=== PATIENT | male | born 1965 | race African-American/Black ===

== ENCOUNTER 2016-12-11 07:09 | Emergency (ER) | payer MEDICAID ==
[~2016-12-11] VITALS: Ht 175.3 cm; Wt 182.0 kg
[~2016-12-11 07:09] MED LIST: NO MEDS
[2016-12-11 07:12] VITALS: Ht 175.3 cm; Wt 182.0 kg
--- NOTE | 2016-12-11 07:45 | ERD ---
ER Documentation Chief Complaint Date/Time DATE: 12/11/16 TIME: 07:42 Chief Complaint pt bib self with c/o left ankle pain HPI This is a 51-year-old male who presents the emergency department today complaining of left ankle pain for the past couple of days. Patient states that he was trying to run he started having pain. Patient states that 2 years ago he had a plate and 7 screws placed for an ankle fracture. States he was sent here to the emergency department by his pain management doctor for an x- ray. States he takes Vicodin at home by his pain management doctor. States he also has a "medical marijuana card". Denies any fevers or chills. ROS All systems reviewed and are negative except as per history of present illness. Medications Home Meds Reported Medications [No Meds] No Conflict Check 02/19/11 Allergies Allergies: Coded Allergies: No Known Drug Allergies (Verified Allergy, Mild, 02/19/11) PMhx/Soc History of Surgery: No Anesthesia Reaction: No Hx Neurological Disorder: No Hx Respiratory Disorders: No Hx Cardiac Disorders: No Hx Psychiatric Problems: No Hx Miscellaneous Medical Probl: No Hx Alcohol Use: Yes Hx Substance Use: No Hx Tobacco Use: Yes Smoking Status: Current every day smoker Physical Exam Vitals Vital Signs Date Time Temp Pulse Resp B/P Pulse Ox O2 Delivery O2 Flow Rate FiO2 12/11/16 07:12 98.3 85 16 160/90 99 Physical Exam Const: No acute distress Head: Atraumatic Eyes: Normal Conjunctiva ENT: Normal External Ears, Nose and Mouth. Neck: Full range of motion..~ No meningismus. Resp: Clear to auscultation bilaterally Cardio: Regular rate and rhythm, no murmurs Skin: No petechiae or rashes. Left ankle evidence of surgical scar MSK left ankle with no obvious deformity. Mild effusion over lateral aspect of ankle. Evidence of surgical scar. Decreased range of motion secondary to pain. Pulses 2+. Distal neurovascularly intact.. Pulses 2+. Neur: Awake and alert Psych: Normal Mood and Affect Results 24 hrs DIAGNOSTIC IMAGING REPORT Patient: CINDY BATISTA : 1965 Age: 51 Sex: M MR #: [id number] DOS: 12/11/16 0000 Ordering MD: MAGEN FINNEGAN PA-C Location: [facility] Room/Bed: PROCEDURE: Left ankle series. CLINICAL INDICATION: Left ankle pain TECHNIQUE: Three views of the left ankle were performed. COMPARISON: None. FINDINGS: Patient is status post ORIF of distal fibular fracture. Hardware appears intact. There is no evidence of hardware loosening or hardware fracture. No acute fracture or dislocation is seen. There are moderate degenerative changes of the left ankle joint.. No joint effusion is identified. The soft tissues are within normal limits. Incidental note is made of a plantar heel spur. IMPRESSION: 1. Does post ORIF of distal left fibular fracture with intact hardware. 2. Moderate degenerative changes of the left ankle joint. RPTAT: AA .Shashi Jo MD, MD Date Time Electronically viewed and signed by .Shashi Jo MD, MD on 2016 08:27 .B/ CC: MAGEN FINNEGAN PA-C Procedures/MDM This is a 51-year-old male who presents to the emergency department today complaining of left ankle pain for the past couple of days. Patient has a history of surgical reconstruction with a plate and screws. Patient was sent here by his pain management doctor for imaging. Per the radiology report images of the left ankle show the patient is status post ORIF of distal fibular fracture. Hardware appears intact. There is no evidence of hardware loosening or hardware fracture. No acute fracture dislocation. There are moderate degenerative changes of the left ankle. There is no joint effusion identified. Soft tissues are within normal limits. Incidental note made of plantar heel spur. Patient symptoms at this time most consistent with ankle pain likely acute on chronic versus sprain versus strain. Patient is afebrile and otherwise well-appearing. Low suspicion for septic joint or gout. Patient was not given any pain medication here in the emergency department. He does see a pain management doctor and may take his usual pain medications at home. Patient was not asking for any pain medication and he does not appear to be exhibiting any drug-seeking behavior. Patient was given crutches to help ambulate. At this time the patient is stable for discharge and outpatient management. Patient should follow up with their PCP in the next 1-2 days. They may return to the emergency department sooner for any persistent or worsening of symptoms. Patient understood and agreed with the plan. Departure Diagnosis: Primary Impression: Ankle pain Laterality: left Chronicity: chronic Qualified Code: M25.572 - Chronic pain of left ankle Condition: Fair MAGEN FINNEGAN PA-C Dec 11, 2016 07:45
--- NOTE | 2016-12-11 08:28 | RADRPT ---
PROCEDURE: Left ankle series. CLINICAL INDICATION: Left ankle pain TECHNIQUE: Three views of the left ankle were performed. COMPARISON: None. FINDINGS: Patient is status post ORIF of distal fibular fracture. Hardware appears intact. There is no evide nce of hardware loosening or hardware fracture. No acute fracture or dislocation is seen. There ar e moderate degenerative changes of the left ankle joint.. No joint effusion is identified. The soft tissues are within normal limits. Incidental note is made of a plantar heel spur. IMPRESSION: 1. Does post ORIF of distal left fibular fracture with intact hardware. 2. Moderate degenerative changes of the left ankle joint. RPTAT: AA .Shashi Jo MD, MD Date Time Electronically viewed and signed by .Shashi Jo MD, on 12/11/2016 08:27 .B/
== END 2016-12-11 08:51 | disposition home or self-care (01) ==
LOC: FTE 07:09
DX: M25.572 Pain in left ankle and joints of left foot (principal); F17.210 Nicotine dependence, cigarettes, uncomplicated
CPT/HCPCS: 73610; Z7502

== ENCOUNTER 2018-07-15 07:22 | Day surgery (SDC) | END 2018-07-15 14:00 | disposition home or self-care (01) ==

== ENCOUNTER 2018-08-02 18:53 | Emergency (ER) | END 2018-08-03 00:05 | disposition home or self-care (01) ==